=== PATIENT | female | born 1980 | race Caucasian/White ===

== ENCOUNTER 2025-05-17 03:30 | Inpatient (IN) | payer SELFPAY ==
[2025-05-17 04:14] VITALS: BMI 22.8
[2025-05-17] MEDS ORDERED: Glucagon 1 MG/ML KIT IM PRN (04:35)
[2025-05-17] MEDS ORDERED: Acetaminophen 325 MG TAB PO PRN (04:35)
[2025-05-17] MEDS ORDERED: Dextrose 50% Abboject 50 ML SYRINGE SLOW IVP PRN (04:35)
[2025-05-17] MEDS ORDERED: Ondansetron PF 4 MG/2 ML Vial IVP PRN (04:35)
[2025-05-17] MEDS: Calcium Carbonate 500 MG ChewTAB PO PRN (05:27)
[2025-05-17] MEDS: Lactulose 20 GM (30 mL) UDCUP PO SCH (08:57)
[2025-05-17 09:00] VITALS: BP 105/67; TEMP 97.9
== END 2025-05-17 12:25 | disposition left against medical advice (07) | DRG 446 ==
LOC: SURG B 03:30 → OBSVTOIN 04:32
PROVIDERS: ADMIT Surgery; ATTEND Surgery
DX: K80.10 Calculus of gallbladder with chronic cholecystitis without obstruction (principal); Z98.890 Other specified postprocedural states; Z79.899 Other long term (current) drug therapy; Z88.8 Allergy status to other drugs, medicaments and biological substances
CPT/HCPCS: 76705; J2543; J7030